=== PATIENT | female | born 1965 | race Caucasian/White ===

== ENCOUNTER → 2018-02-20 20:04 | Outpatient (CLI) | payer MEDICAID, SELFPAY | PROVIDERS: PCP Family Medicine; Visit Provider Nurse Practitioner Family | DX: G47.33 Obstructive sleep apnea (adult) (pediatric) (principal) | CPT/HCPCS: 95811 ==

== ENCOUNTER 2021-09-15 09:29 | Emergency (ER) | payer BC, SELFPAY ==
--- NOTE | 2021-09-15 10:38 | HMH.EDUTC ---
[facility] [place] Disposition Clinical Impression: Viral syndrome, Bronchitis Sinusitis Qualifiers: Sinusitis location: unspecified location Chronicity: acute Recurrence: non-recurrent Qualified Code(s): J01.90 - Acute sinusitis, unspecified Disposition: Home, Self-Care Condition on Discharge: Good Instructions: DI for Sinusitis, DI for Acute Bronchitis Additional Instructions: Drink plenty of fluids. Take tylenol or ibuprofen for pain or fever. Take the medications as directed. Follow up with your regular doctor. GO TO THE ER FOR ANY WORSENING SYMPTOMS Don't start the oral steroids until tomorrow, since you had the shot here today. Prescriptions: Albuterol Sulfate [Albuterol Sulfate Hfa] 2 puffs IH Q6HP PRN 30 Days #1 each PRN Reason: Shortness Of Breath Transmission Status: Received by [facility] Benzonatate [Benzonatate 100mg cap] 100 mg PO TIDP PRN #30 cap PRN Reason: Cough Transmission Status: Received by [facility] methylPREDNISolone [Medrol] 4 mg PO DIRECTED 6 Days #21 packet Transmission Status: Received by [facility] Azithromycin [Z-Nathaniel 250mg Tab*] 250 mg PO UD DOSE PK #6 tab Transmission Status: Received by [facility] Referrals: Provider,Referral, MD [Primary Care Provider] - Forms: Work/School Release Time of Disposition: 11:30 Medical Decision Making - Medical Records Medical records reviewed: No: I reviewed the patient's medical records. - Johny Inquiry Pt receiving controlled substance: No Vital Signs: 09/15/21 10:40 09/15/21 11:46 Temperature 98.2 F 98.2 F Temperature Source Oral Pulse Rate 93 H Pulse Rate [Right Brachial] 93 H Respiratory Rate 18 18 Blood Pressure 150/87 H Blood Pressure [Right Arm] 150/87 H Blood Pressure Mean [Right Arm] 108 Blood Pressure Source [Right Arm] Automatic Cuff Blood Pressure Position [Right Arm] Sitting 02 Sat by Pulse Oximetry 98 Oxygen Delivery Method Room Air - Lab Data Lab results reviewed: Yes: I reviewed the patient's lab results. Lab Results 09/15/21 10:43: Influenza Type A Ag Negative, Influenza Type B Ag Negative Orders (Tests/Meds): ED MEDICATIONS Discontinued Medications Generic Name Dose Route Start Last Admin Trade Name Freq PRN Reason Stop Dose Admin Ceftriaxone Sodium 1 gm 09/15/21 11:23 09/15/21 11:40 Ceftriaxone 1gm Vial IM 09/15/21 11:24 1 gm ONCE ONE Administration Lidocaine HCl 0 ml 09/15/21 11:23 09/15/21 11:40 Lidocaine 1% 5ml Pf Vial IM 09/15/21 11:24 2 ml ONCE ONE Administration Methylprednisolone Sodium Succinate 125 mg 09/15/21 11:23 09/15/21 11:40 Methylprednisolone Sod Succ 125mg Vial IM 09/15/21 11:24 125 mg ONCE ONE Administration [facility] [place] HPI - General Stated complaint: sore throat, bodyaches, MEDRANO Time Seen by Provider: 09/15/21 10:38 - History of Present Illness Provider Complaint: She c/o sore throat and body aches for the past 2 days. - Related Data Home Medications Medication Instructions Recorded Confirmed buspirone 10 mg tablet 10 mg PO 30 Days tab 02/03/18 03/04/18 levothyroxine 88 mcg tablet 88 mcg PO DAILY 30 Days #30 tab 02/03/18 03/04/18 losartan 100 1 tab PO DAILY 30 Days #30 tab 02/03/18 03/04/18 mg-hydrochlorothiazide 25 mg tablet metoprolol succinate 50 mg 50 mg PO DAILY 30 Days #30 tab 02/03/18 03/04/18 tablet,extended release 24 hr Previous Rx's Medication Instructions Recorded Albuterol Sulfate [Albuterol 2 puffs IH Q6HP PRN 30 Days #1 each 09/15/21 Sulfate Hfa] Azithromycin [Z-Nathaniel 250mg Tab*] 250 mg PO UD DOSE PK #6 tab 09/15/21 Benzonatate [Benzonatate 100mg 100 mg PO TIDP PRN #30 cap 09/15/21 cap] methylPREDNISolone [Medrol] 4 mg PO DIRECTED 6 Days #21 09/15/21 packet Allergies Allergy/AdvReac Type Severity Reaction Status Date / Time No Known Allergies Allergy Unverified 03/04/18 14:17 [facility] History - Hepatitis
[2021-09-15 10:40] VITALS: BP 150/87; PULSE 93; RESP 18; TEMP 36.8; O2SAT 98; BMI 31.7
[2021-09-15 10:43] LABS: UTC Influenza A Antigen Negative (Negative); UTC Influenza B Antigen Negative (Negative)
[2021-09-15 11:46] VITALS: BP 150/87; PULSE 93; RESP 18; TEMP 36.8; O2SAT 98
== END 2021-09-15 11:55 | disposition home or self-care (01) ==
LOC: UTC 09:32
PROVIDERS: Emergency Provider Nurse Practitioner Family
DX: J01.90 Acute sinusitis, unspecified (principal); B34.9 Viral infection, unspecified; M79.10 Myalgia, unspecified site; R51.9 Headache, unspecified; I10 Essential (primary) hypertension; E03.9 Hypothyroidism, unspecified; F41.9 Anxiety disorder, unspecified; F17.210 Nicotine dependence, cigarettes, uncomplicated; Z79.51 Long term (current) use of inhaled steroids; Z79.52 Long term (current) use of systemic steroids; Z82.49 Family history of ischemic heart disease and other diseases of the circulatory system; Z83.3 Family history of diabetes mellitus
CPT/HCPCS: 87804; 96372; 99213; G0463; J0696

== ENCOUNTER 2022-10-01 16:18 | Emergency (ER) | payer BC, SELFPAY ==
--- NOTE | 2022-10-01 16:27 | EXP.UTC ---
Discharge Plan Disposition Patient Disposition: Home, Self-Care Condition: Good Prescriptions Prescriptions: No Action levothyroxine 88 mcg tablet 88 mcg PO DAILY 30 Days Qty: 30 metoprolol succinate 50 mg tablet extended release 24 hr 50 mg PO DAILY 30 Days Qty: 30 losartan-hydrochlorothiazide 100-25 mg tablet 1 tab PO DAILY 30 Days Qty: 30 metformin 500 mg tablet extended release 24 hr 500 mg PO DAILY albuterol sulfate 8.5 GM HFA aerosol inhaler 2 puffs IH Q6HP PRN (Reason: Shortness Of Breath) 30 Days Qty: 1 5RF Referrals Follow up/Referrals: Rolo Miller [Primary Care Provider] - See instructions Nusrat Kilpatrick DPM [Staff Physician] - See instructions Activity Restrictions/Add. Instructions Additional Instructions/Restrictions: Rest the extremity, Elevate the extremity as tolerated while you are resting. Take ibuprofen for pain. Follow up with Dr. Kilpatrick (podiatry). I put in a referral but you need to call her office and schedule an appointment. Follow up with your regular doctor. GO TO THE ER FOR ANY WORSENING SYMPTOMS Clinical Impressions Clinical Impression: Foot pain, right, Calcaneal spur, right Instructions Patient Instructions: DI for Foot Pain Discharge ED Provider: Sherif Napoles [facility] General Stated complaint: RT foot inj Time Seen by Provider: 10/01/22 16:26 History of Present Illness Provider Complaint: She states that on 09/22 she twisted her right foot and ankle. Related Data Home Medications Medication Instructions Recorded Confirmed levothyroxine 88 mcg tablet 88 mcg PO DAILY Supplement 30 days 02/03/18 10/01/22 #30 tabs losartan 100 1 tab PO DAILY High blood pressure 02/03/18 10/01/22 mg-hydrochlorothiazide 25 mg tablet 30 days #30 tabs metoprolol succinate 50 mg 50 mg PO DAILY High blood pressure 02/03/18 10/01/22 tablet,extended release 24 hr 30 days #30 tabs metformin 500 mg tablet,extended 500 mg PO DAILY Diabetes 10/01/22 10/01/22 release 24 hr Previous Rx's Medication Instructions Recorded albuterol sulfate 90 mcg/actuation 2 puffs inhalation Q6HP PRN 09/15/21 aerosol inhaler Shortness Of Breath 30 days #1 ea Allergies Allergy/AdvReac Type Severity Reaction Status Date / Time No Known Allergies Allergy Verified 10/01/22 16:34 [facility] Disclaimer: The information contained in this section may have been updated after the patient was seen, as this information can be updated by other users. Medical History Diabetes mellitus, type 2 Hypertension Hypothyroid Surgical History History of cholecystectomy History of hysterectomy History of tonsillectomy Family History Other No significant family history Social History Smoking Status: Current every day smoker tobacco type: cigarettes packs per day: 1 alcohol intake: never substance use type: denies use current occupational status: employed Travel in the last 8 weeks: None household members: none housing: house ROS Obtained: Yes All systems reviewed & no additional complaints except as documented Constitutional Constitutional: Denies chills and Denies fever(s) Eyes Eyes: Denies eye discharge ENT Ears, Nose, Mouth, and Throat: Denies dizziness, Denies otalgia and Denies sore throat Cardiovascular Cardiovascular: Denies chest pain Respiratory Respiratory: Denies shortness of breath, Denies chest congestion, Denies cough, Denies stridor and Denies wheezing Gastrointestinal Gastrointestingal: Denies nausea or vomiting Musculoskeletal Musculoskeletal: Reports as per HPI Integumentary/Breasts Skin/Breast: Denies rash Neurologic Neurologic: Denies dizziness and Denies paresthesias Allergic/Immunologic Allergic/Immunol
--- NOTE | 2022-10-01 16:29 | XR_ITS ---
PROCEDURE INFORMATION: Exam: XR Right Foot Exam date and time: 10/01/2022 4:50 PM Age: 57 years old Clinical indication: Pain; Foot; Right TECHNIQUE: Imaging protocol: Radiologic exam of the right foot. Views: 3 or more views. COMPARISON: No relevant prior studies available. FINDINGS: Bones/joints: No acute fracture or dislocation. Bones appear mildly demineralized. Prominent plantar calcaneal spur, milder Achilles calcaneal spur. There are no lytic skeletal lesions seen. No significant arthritic deformities. Soft tissues: Minimal soft tissue swelling. No radiopaque foreign bodies seen. No soft tissue emphysema. IMPRESSION: 1. No acute fracture or dislocation. 2. Plantar and Achilles calcaneal spurs, correlate for history of plantar fasciitis or Achilles tendinopathy.
[2022-10-01 16:36] VITALS: BP 145/85; PULSE 83; RESP 16; TEMP 36.5; O2SAT 97; BMI 32.8
[2022-10-01 17:42] VITALS: BP 145/85; PULSE 83; RESP 16; TEMP 36.5; O2SAT 83
== END 2022-10-01 17:43 | disposition home or self-care (01) ==
PROVIDERS: Emergency Provider Nurse Practitioner Family; PCP Family Medicine
DX: M79.671 Pain in right foot (principal); M77.31 Calcaneal spur, right foot; F17.210 Nicotine dependence, cigarettes, uncomplicated; E11.9 Type 2 diabetes mellitus without complications; I10 Essential (primary) hypertension; E03.9 Hypothyroidism, unspecified; Z79.84 Long term (current) use of oral hypoglycemic drugs; X50.1XXA Overexertion from prolonged static or awkward postures, initial encounter
CPT/HCPCS: 73630; 99212; 99214; G0463

== ENCOUNTER → 2022-11-07 11:28 | Outpatient (CLI) | payer BC, SELFPAY ==
[2022-11-07 18:23] LABS: Adenovirus,PCR Not Detected (NotDetected); Bordetella Pertussis Not Detected (NotDetected); Chlamydophila Pneumoniae, PCR Not Detected (NotDetected); Coronavirus 19, PCR Not Detected (NotDetected); Coronavirus 229E Not Detected (NotDetected); Coronavirus NL63 Not Detected (NotDetected); Coronavirus OC43 Not Detected (NotDetected); Coronovirus HKU1,PCR Not Detected (NotDetected); Human Metapneumovirus Not Detected (NotDetected); Influenza A, PCR Not Detected (NotDetected); Influenza AH1, 2009 Not Detected (NotDetected); Influenza AH1, PCR Not Detected (NotDetected); Influenza AH3,PCR Not Detected (NotDetected); Influenza B, PCR Not Detected (NotDetected); Mycoplasma Pneumoniae, PCR Not Detected (NotDetected); Parainfluenza 1, PCR Not Detected (NotDetected); Parainfluenza 2, PCR Not Detected (NotDetected); Parainfluenza 3, PCR Not Detected (NotDetected); Parainfluenza 4, PCR Not Detected (NotDetected); Respiratory Syncytial Virus Not Detected (NotDetected)
[2022-11-07 20:41] LABS: Rhinovirus/Enterovirus Detected (NotDetected)
== END ==
PROVIDERS: PCP Nurse Practitioner Family; Visit Provider Nurse Practitioner Family
DX: R05.9 Cough, unspecified (principal); B34.1 Enterovirus infection, unspecified
CPT/HCPCS: 87581; 87632; 87798

== ENCOUNTER 2024-01-08 19:12 | Outpatient (CLI) | payer BC, SELFPAY ==
[2024-01-08 18:29] LABS: Adenovirus,PCR Not Detected (NotDetected); Bordetella Pertussis Not Detected (NotDetected); Chlamydophila Pneumoniae, PCR Not Detected (NotDetected); Coronavirus 19, PCR Not Detected (NotDetected); Coronavirus 229E Not Detected (NotDetected); Coronavirus NL63 Not Detected (NotDetected); Coronavirus OC43 Not Detected (NotDetected); Coronovirus HKU1,PCR Not Detected (NotDetected); Human Metapneumovirus Not Detected (NotDetected); Influenza A, PCR Not Detected (NotDetected); Influenza AH1, 2009 Not Detected (NotDetected); Influenza AH1, PCR Not Detected (NotDetected); Influenza AH3,PCR Not Detected (NotDetected); Influenza B, PCR Not Detected (NotDetected); Mycoplasma Pneumoniae, PCR Not Detected (NotDetected); Parainfluenza 1, PCR Not Detected (NotDetected); Parainfluenza 2, PCR Not Detected (NotDetected); Parainfluenza 3, PCR Not Detected (NotDetected); Parainfluenza 4, PCR Not Detected (NotDetected); Respiratory Syncytial Virus Not Detected (NotDetected)
[2024-01-13 18:16] LABS: Rhinovirus/Enterovirus Detected (NotDetected)
== END 2024-01-08 23:59 | disposition home or self-care (01) ==
LOC: LAB.DROPOF 19:12
PROVIDERS: PCP Nurse Practitioner Family; Visit Provider Nurse Practitioner Family
DX: R09.81 Nasal congestion (principal); J02.9 Acute pharyngitis, unspecified; Z72.0 Tobacco use
CPT/HCPCS: 87070; 87265; 87486; 87581; 87632; 87635

== ENCOUNTER 2024-01-21 16:00 | Outpatient (CLI) | payer BC, SELFPAY ==
--- NOTE | 2024-01-21 16:07 | XR_ITS ---
PROCEDURE INFORMATION: Exam: XR Chest Exam date and time: 01/21/2024 4:11 PM Age: 58 years old Clinical indication: Dyspnea TECHNIQUE: Imaging protocol: Radiologic exam of the chest. Views: 2 views. COMPARISON: No relevant prior studies available. FINDINGS: Lungs: Calcified granuloma in the left mid to upper lung reese. Pleural spaces: No large effusion or pneumothorax. Heart/Mediastinum: No evidence of mediastinal widening or cardiac silhouette enlargement; the mediastinum and heart appear within normal limits for contour and size. Diaphragm: There is elevation of the right hemidiaphragm. Bones/joints: No evidence of acute osseous abnormalities within the visualized portions of the thoracic spine and ribs. Osseous structures appear appropriate for patient age. Intraperitoneal space: There are right upper quadrant surgical clips suggesting prior cholecystectomy. IMPRESSION: No dense parenchymal consolidation, pleural effusion, or pneumothorax.
== END 2024-01-21 23:59 | disposition home or self-care (01) ==
LOC: RAD 16:03
PROVIDERS: Visit Provider Nurse Practitioner Family
DX: R06.00 Dyspnea, unspecified (principal)
CPT/HCPCS: 71046

== ENCOUNTER 2024-06-28 10:32 | Emergency (ER) | payer BC, SELFPAY ==
[2024-06-28 10:33] VITALS: BP 152/85; PULSE 99; RESP 24; TEMP 37.2; O2SAT 97; BMI 31.1
--- NOTE | 2024-06-28 10:35 | PC.NURSE ---
DR ADAMS AT BEDSIDE
--- NOTE | 2024-06-28 10:40 | XR_ITS ---
PROCEDURE INFORMATION: Exam: XR Chest Exam date and time: 06/28/2024 10:37 AM Age: 58 years old Clinical indication: Other: Cough, biphasic wheeze TECHNIQUE: Imaging protocol: Radiologic exam of the chest. Views: 2 views. COMPARISON: CR XR CHEST 2V 01/21/2024 4:11 PM FINDINGS: Lungs: Benign granulomatous disease of the lung is unchanged. Pleural spaces: Unremarkable. No pleural effusion. No pneumothorax. Heart/Mediastinum: Unremarkable. No cardiomegaly. Bones/joints: Unremarkable. Organs: Prior cholecystectomy noted. IMPRESSION: No acute process identified.
--- NOTE | 2024-06-28 10:42 | HMH.EDCP ---
Discharge Plan Disposition Patient Disposition: Home, Self-Care Prescriptions Prescriptions: New [id number] [Bromfed DM] 2-30-10 mg/5 mL syrup 5 ml PO Q6H PRN (Reason: cold symptoms) Qty: 118 0RF Rx Instructions: Do not combine with promethazine No Action omeprazole 20 mg capsule,delayed release(DR/EC) 20 mg PO DAILY promethazine-DM 6.25-15 mg/5 mL syrup 5 ml PO Q4-6H PRN (Reason: cough) Qty: 118 0RF levothyroxine 88 mcg tablet 88 mcg PO DAILY 30 Days Qty: 30 metoprolol succinate 50 mg tablet extended release 24 hr 50 mg PO DAILY 30 Days Qty: 30 telmisartan-hydrochlorothiazid 80-12.5 mg tablet 1 tab PO DAILY rosuvastatin 20 mg tablet 20 mg PO DAILY metformin 500 mg tablet extended release 24 hr 500 mg PO DAILY Referrals Follow up/Referrals: Linda Oseguera APRN [Primary Care Provider] - See instructions Activity Restrictions/Add. Instructions Additional Instructions/Restrictions: At this time it was felt you are safe to be discharged home. If new or worsening symptoms please do not hesitate to return the emergency department. Please follow-up with your family doctor within 5 days to recheck your sugar and make sure your flu is headed in the right direction. Please take your cough medicine as prescribed. Clinical Impressions Clinical Impression: Influenza A, Hyperglycemia Print Language Print Language: Yi Discharge ED Provider: Boone Gresham HPI General Chief Complaint: Upper Respiratory Infection Stated Complaint: SOA, cough, headache, diarrhea Time Seen by Provider: 06/28/24 10:37 History of Present Illness HPI narrative: Patient is a 58-year-old female, smoker, does not carry diagnosis of COPD presents emergency department for evaluation of cough and shortness of breath. Onset was acute, over the last 7 days, productive cough. No chest pain reported. Does not take diuretics. Due to persistent symptoms she presents here for continued evaluation. No other acute complaints at this time. Please note that above description of symptoms, in this electronic medical record under categorization of recalled from ER triage doctor by RN are reflective of an initial nursing assessment, however, is not reflective of my full history and physical exam that was personally taken and clarified. Consequentially, this preceding description of symptoms, which may include the patient's categorized chief complaint in the EMR, do not reflect my personal clinical impression, and the ultimate description of history of present illness and patient stated complaints should be deferred to this section of the note. Unless stated otherwise or congruent with this section of the note, additional signs, symptoms, or incongruence should be interpreted as inaccurate with my clinical impression. Related Data Home Medications ?Medication ?Instructions ?Recorded ?Confirmed levothyroxine 88 mcg tablet 88 mcg PO DAILY Supplement 30 days 02/03/18 01/08/24 #30 tabs metoprolol succinate 50 mg 50 mg PO DAILY High blood pressure 02/03/18 01/08/24 tablet,extended release 24 hr 30 days #30 tabs metformin 500 mg tablet,extended 500 mg PO DAILY Diabetes 10/01/22 01/08/24 release 24 hr rosuvastatin 20 mg tablet 20 mg PO DAILY 11/07/22 01/08/24 telmisartan 80 1 tab PO DAILY 11/07/22 01/08/24 mg-hydrochlorothiazide 12.5 mg tablet omeprazole 20 mg capsule,delayed 20 mg PO DAILY 01/08/24 01/08/24 release Previous Rx's ?Medication ?Instructions ?Recorded promethazine-DM 6.25 mg-15 mg/5 mL 5 ml PO Q4-6H PRN cough #118 mL 01/08/24 oral syrup [id number]-[id number] 5 ml PO Q6H PRN cold symptoms #118 06/28/24 2 mg-30 mg-10 mg/5 mL oral syrup mL (Bromfed DM) Allergies Allergy/AdvReac Type Severity Reaction Status Date / Time No Known Allergies Allergy Verified 01/08/24 15:23 [facility] Disclaimer: The information contained in this section may have been updated after the patient was seen, as this information can be updated by other users. Medical History (Updated 06/28/24 @ 11:54 by Boone Gresham MD) Calcaneal spur, right Foot pain, right Sinusitis Bronchitis Plantar fasciitis of right foot Acute bacterial bronchitis Hypothyroid Diabetes mellitus, type 2 Hypertension Surgical History History of cholecystectomy History of hysterectomy History of tonsillectomy Family History Other No significant family history Social History Smoking Status: Current every day smoker tobacco type: cigarettes packs per day: 1 alcohol intake: never substance use type: denies use current occupational status: employed Travel in the last 8 weeks: None household members: none housing: house Have you lived/traveled outside [place] in past 30 days?: No Contact w/someone who lives/traveled outside [place] past 30 days?: No Exposure to someone with infectious disease in past 14 days?: No Do you have a fever (greater than 100.4 F or 38 C)?: No Have you tested positive for COVID-19: No Exposed to someone with COVID-19 in past 14 days?: No Do you have a sore throat?: No Do you have a cough?: Yes Do you have any weakness?: Yes Do you have any diarrhea?: Yes Are you experiencing any unusual bleeding?: No Do you have any muscle aches/pain?: Yes Do you have any abdominal pain?: No Are you experiencing loss of taste or smell?: No Other Medical History Have you received the Pneumonia Vaccine: No ROS Obtained: Yes Systems reviewed as appropriate & no additional complaints except as documented Physical Exam General General appearance: alert and in no apparent distress Head Head exam: atraumatic and normocephalic Eye Eye exam: Present PERRL ENT ENT exam: Present mucous membranes moist and other (Mildly erythematous posterior oropharynx without purulence, no enlarged tonsils uvula midline) Neck Neck exam: Present normal inspection Chest Chest inspection: Present normal inspection and symmetric chest wall rise Respiratory Respiratory exam: Present wheezes (Biphasic wheezing all lung reese not in overt respiratory distress); Absent normal lung sounds bilaterally or respiratory distress Cardiovascular Cardiovascular exam: Present regular rate and normal rhythm Abdominal Exam Abdominal exam: Present soft; Absent tenderness Extremities Exam Extremities exam: Present normal inspection Neurological Exam Neurological exam: Present alert Psychiatric Psychiatric exam: Present normal affect Skin Skin exam: Present warm and dry HEART Score HEART Score HEART Score assessment performed?: No Critical Care Critical Care Time Critical Care Time: No Medical Decision Making Johny Inquiry Pt receiving controlled substance: No Vital Signs Vital Signs: 06/28/24 10:33 06/28/24 11:28 Temperature 99.0 F Temperature Source Oral Pulse Rate 94 H Pulse Rate [Left Radial] 99 H Respiratory Rate 24 Blood Pressure 137/74 Blood Pressure [Right Arm] 152/85 H Blood Pressure Mean [Right Arm] 107 02 Sat by Pulse Oximetry 97 95 Oxygen Delivery Method Room Air Room Air Lab Data Labs: Lab Results 06/28/24 10:50: WBC 9.3, RBC 4.58, Hgb 12.7, Hct 37.2, MCV 81.2, MCH 27.7, MCHC 34.1, RDW 11.9, Plt Count 345, MPV 9.0, Neut % (Auto) 69.1, Lymph % (Auto) 21.9, [place] % (Auto) 5.8, Eos % (Auto) 2.4, Baso % (Auto) 0.4, Neut # (Auto) 6.4, Lymph # (Auto) 2.0, [place] # (Auto) 0.5, Eos # (Auto) 0.2, Baso # (Auto) 0.0, Sodium 140, Potassium 3.5, Chloride 102, Carbon Dioxide 30, Anion Gap 11.5, BUN 11, Creatinine 0.70, Estimated Creat Clear 108, Estimated GFR 85, Est GFR ( Amer) 103, Glucose 249 H, Calcium 9.1, Total Bilirubin 0.7, AST 67 H, ALT 56, Alkaline Phosphatase 108, Total Protein 7.6, Albumin 4.2, Globulin 3.4 H, Albumin/Globulin Ratio 1.2, SARS-CoV-2 (PCR) Not detected, Influenza A Untype (PCR) Detected A, Influenza Type B (PCR) Not detected 06/28/24 10:50 06/28/24 10:50 Response Orders (Tests/Meds): ED MEDICATIONS Discontinued Medications Generic Name Dose Route Start Last Admin Trade Name Freq PRN Reason Stop Dose Admin Albuterol/Ipratropium 9 ml 06/28/24 10:40 06/28/24 10:56 Ipratropium/Albuterol 3 Ml Neb IH 06/28/24 10:41 9 ml ONCE ONE Administration Magnesium Sulfate 2 gm in 50 mls @ 50 mls/hr 06/28/24 10:40 06/28/24 10:55 Magnesium Sulfate 2gm/50ml Premix IV 06/28/24 11:39 50 mls/hr ONCE ONE Administration Methylprednisolone Sodium Succinate 125 mg 06/28/24 10:40 06/28/24 10:55 Methylprednisolone Sod Succ 125mg Vial IV 06/28/24 10:41 125 mg ONCE ONE Administration ORDERS Category Date Time Status CXR 2 view (NOT portable) [XR chest 2V] Stat Exams 06/28/24 10:40 Completed CBC w/Auto Diff [Complete Blood Count Auto Diff] Stat Lab 06/28/24 10:50 Completed CMP [Comprehensive Metabolic Panel] Stat Lab 06/28/24 10:50 Completed Rapid PCR Covid and Flu A/B Stat Lab 06/28/24 10:50 Completed MDM Narrative Medical Decision Narrative: In summary patient is 58-year-old female past medical history described above who presents emergency department for evaluation of shortness of breath and cough. Patient is hemodynamically stable nontoxic-appearing upon arrival, afebrile. She does have biphasic wheezing all lung reese. I suspect she has viral induced reactive airway disease or possibly a component of undiagnosed COPD. Differential also includes pneumonia, among others. Workup we conducted with hematologic labs, two-view chest x-ray, viral swab. Initial inventions include DuoNebs x 3, methylprednisolone, IV steroids. Workup for ACS was considered however she has no chest pain and symptoms highly consistent with respiratory infection will be deferred at this time. Initial workup reviewed by me, no significant leukocytosis, no [place] or critical electrolyte abnormality. Patient does have elevated sugar without elevated anion gap. She is influenza A positive. Chest x-ray informally interpreted by me, no acute lobar opacities or large pneumothorax. Upon repeat evaluation patient continued to be well-appearing saturating well on room air without respiratory distress and is appropriate for outpatient management at this time will be discharged with a course of Bromfed and was given return precautions will follow-up with family doctor.
[2024-06-28] MEDS: MAGNESIUM SULFATE IN WATER 2 GM/50 ML PIGGYBACK IV (10:55)
[2024-06-28] MEDS: METHYLPREDNISOLONE SOD SUCC 125MG VIAL 125 MG IV (10:55)
[2024-06-28] MEDS: IPRATROPIUM/ALBUTEROL 3 ML NEB 9 ML IH (10:56)
[2024-06-28 11:03] LABS: Coronavirus 19, PCR Not Detected (NotDetected); Influenza B, PCR Not Detected (NotDetected)
[2024-06-28 11:04] LABS: Basophils % 0.4 % (0.1-2.0); Eosinophils # 0.2 K/mm3 (0.0-0.4); Eosinophils % 2.4 % (0.1-12.0); Hematocrit 37.2 % (37.0-47.0); Hemoglobin 12.7 g/dL (12.2-16.2); Lymphocytes % 21.9 % (10-50); Mean Corpuscular HGB Conc 34.1 g/dL (31.8-35.4); Mean Corpuscular Hemoglobin 27.7 pg (27.0-31.2); Mean Corpuscular Volume 81.2 fl (81-99); Monocytes # 0.5 K/mm3 (0.1-1.0); Monocytes % 5.8 % (1.7-9.3); Neutrophils # 6.4 K/mm3 (1.8-7.8); Neutrophils % 69.1 % (37.0-80.0); Platelet Count 345 K/mm3 (142-424); Red Blood Count 4.58 M/mm3 (4.20-5.40); Red Cell Distribution Width 11.9 % (11.5-17.5); White Blood Count 9.3 K/mm3 (4.8-10.8)
[2024-06-28 11:14] LABS: Albumin Level 4.2 g/dl (3.5-5.0); Chloride 102 mmol/L (98-107); Sodium 140 mmol/L (136-145)
[2024-06-28 11:15] LABS: Potassium 3.5 mmoL/L (3.5-5.1)
[2024-06-28 11:17] LABS: Alanine Aminotransferase 56 U/L (12-78); Albumin/Globulin Ratio 1.2 (1.1-1.8); Alkaline Phosphatase 108 U/L (38-126); Anion Gap 11.5 mEq/L (5-15); Aspartate Amino Transferase 67 U/L (14-36); Bilirubin,Total 0.7 mg/dl (0.2-1.3); Blood Urea Nitrogen 11 mg/dl (7-17); Calcium 9.1 mg/dl (8.4-10.2); Carbon Dioxide 30 mmol/L (22.0-30.0); Creatinine Clearance Estimated 108 mL/min (50-200); Estimated Glomerular Filt Rate 85 ml/min (>60); GFR (African American) 103 ML/MIN (>60); Globulin 3.4 g/dL (1.3-3.2); Glucose 249 mg/dl (74-100); Total Protein,Serum 7.6 g/dl (6.3-8.2)
[2024-06-28 11:28] VITALS: BP 137/74; PULSE 94; O2SAT 95
[2024-06-28 11:28] LABS: Influenza A, PCR Detected (NotDetected)
--- NOTE | 2024-06-28 11:30 | PC.NURSE ---
ROUNDED ON THE PT. THE PT VOICES THAT SHE DOES NOT NEED ANYTHING AT THIS TIME. CALL LIGHT IS WITHIN REACH OF THE PT.
--- NOTE | 2024-06-28 11:46 | PC.NURSE ---
Patient assisted to the restroom
[2024-06-28 12:02] VITALS: BP 115/64; PULSE 100; RESP 24; TEMP 37.1; O2SAT 95
== END 2024-06-28 12:03 | disposition home or self-care (01) ==
PROVIDERS: Emergency Provider Emergency Medicine; PCP Nurse Practitioner Family
DX: J10.1 Influenza due to other identified influenza virus with other respiratory manifestations (principal); R73.9 Hyperglycemia, unspecified; R06.02 Shortness of breath; R05.9 Cough, unspecified; F17.210 Nicotine dependence, cigarettes, uncomplicated; R51.9 Headache, unspecified; R19.7 Diarrhea, unspecified
CPT/HCPCS: 71046; 80053; 85025; 87636; 96365; 96374; 99284; J2919; J3475; J7620

== ENCOUNTER 2024-10-22 11:16 | Emergency (ER) | payer BC, SELFPAY ==
[2024-10-22 11:20] VITALS: BP 125/77; PULSE 86; RESP 17; TEMP 36.8; O2SAT 98; BMI 31.5
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
[2024-10-22 11:47] VITALS: BP 118/72; PULSE 81; RESP 18; TEMP 36.6; O2SAT 98
--- OUTSIDE RECORDS SUMMARY | 2024-10-22 11:47 | XMS_ITS | Clinical Summary ---
Author Organization [facility] Address [address] 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 metoprolol succinate XL (Toprol-XL) 50 MG 24 hr tabletIndications :Essential hypertension Take 1 tablet (50 mg total) by mouth 1 (one) time each day. 90 tablet 3 01/11/2021 Active telmisartan-hydro CHLOROthiazide (MIcarDIS HCT) 80-12.5 MG tabletIndications :Essential hypertension Take 1 tablet by mouth 1 (one) time each day. 90 tablet 3 01/11/2021 Active levothyroxine (Synthroid, Levoxyl) 88 MCG tabletIndications :Hypothyroidism (acquired) Take 1 tablet (88 mcg total) by mouth 1 (one) time each day. 90 tablet 3 01/17/2021 Active metFORMIN XR (Glucophage-XR) 500 MG 24 hr tabletIndications :Prediabetes Take 1 tablet (500 mg total) by mouth 1 (one) time each day with dinner. Do not crush, chew, or split. 90 tablet 3 01/18/2021 Active Active Problems Problem Noted Date Diagnosed Date GERD (gastroesophageal reflux disease) Overview (01/11/2021): stable Last Assessment & Plan: Well controlled stable Last Assessment & Plan: Well controlled HTN (hypertension) 01/11/2021 Overview (01/11/2021): controlled Last Assessment & Plan: Controlled. controlled Last Assessment & Plan: Controlled. Hyperlipidemia associated with type 2 diabetes kelsie jones 12/01/2019 Overview (01/11/2021): Last Assessment & Plan: Est 10 year risk at 11% (6% with high dose treatment) Last Assessment & Plan: Est 10 year risk at 11% (6% with high dose treatment) Hypothyroidism (acquired) 04/11/2015 Overview (01/11/2021): Last Assessment & Plan: Well controlled Last Assessment & Plan: Well controlled Obesity (BMI 30.0-34.9) 12/07/2013 Overview (01/11/2021): Last Assessment & Plan: Doing well with weight loss Continue diet and exercise. Last Assessment & Plan: Doing well with weight loss Continue diet and exercise. PABLO on CPAP 10/05/2013 Overview (01/11/2021): Will be seeing Dr iGllis soon. Last Assessment & Plan: Doing well Will be seeing Dr Gillis soon. Last Assessment & Plan: Doing well Prediabetes 10/05/2013 Overview (01/11/2021): Last Assessment & Plan: Now in weight watchers Has lost 8 # in the past 2 weeks Recheck A1C in 3 months. Last Assessment & Plan: Now in weight watchers Has lost 8 # in the past 2 weeks Recheck A1C in 3 months. Vitamin D insufficiency 10/05/2013 Overview (01/11/2021): Last Assessment & Plan: No problems clinically. In low nml range Recommend Vit D OTC 5000 units daily Plan recheck in about 3 months Last Assessment & Plan: No problems clinically. In low nml range Recommend Vit D OTC 5000 units daily Plan recheck in about 3 months Gout 03/30/2013 Allergic rhinitis 12/01/2011 Overview (01/11/2021): Last Assessment & Plan: No problems. Last Assessment & Plan: No problems. Immunizations Immunization Administration Dates Next Due Hep B, adult 07/16/2018,03/24/2018,02/18/2018 Influenza, Unspecified 07/15/2020,02/18/2018 Influenza, injectable, quadr ivalent, preservative free 04/05/2021 Moderna COVID-19 Vaccine (Re d Cap) 12+ years 05/26/2020,04/27/2020 Tdap 03/25/2007 Social History Tobacco Use Types Packs/Day Years Used Date Smoking Tobacco: Every Day Cigarettes 0.3 7 Smokeless Tobacco: Never Alcohol Use Standard Drinks/Week Comments Yes 0 (1 standard drink = 0.6 oz pur e alcohol) social drink PHQ-2 Answer Date Recorded Patient Health Questionnaire-2 Score 0 01/11/2021 Comments No Sex and Gender Information Value Date Recorded Sex Assigned at Female 01/12/2021 9:11 AM EDT Legal Sex Female 8:03 PM EDT Gender Identity Female 01/12/2021 9:11 AM EDT Sexual Orientation Straight 01/12/2021 9: 11 AM EDT Last Filed Vital Signs Vital Sign Reading Time Taken Comments Blood Pressure 110/76 06/07/2021 9:39 AM EST Pulse 77 06/07/2021 9:39 AM EST Temperature 36.7 C (98.1 F) 06/07/2021 9:39 AM EST Respiratory Rate 20 05/09/2021 8:20 AM EST Oxygen Saturation 97% 06/07/2021 9:39 AM EST Inhaled Oxygen Concentration - - Weight 80.3 kg (177 lb) 06/07/2021 9:39 AM EST Height 160 cm (5' 3 ) 06/07/2021 9:39 AM EST Body Mass Index 31.35 06/07/2021 9:39 AM EST Plan of Treatment Health Maintenance Due Date Last Done Comments [facility]-Depression Screening 1965 [facility]-/Child/Adol SDOH Screenings 1965 [facility]- SDOH Screenings 07/13/1981 [facility]-Adult SDOH Screenings 07/13/1981 [facility]-Pap Smear 07/13/1984 [facility]-Cervical Cancer Screening 07/13/1993 [facility]-HPV/Cotest 07/13/1993 CT Colonography 07/13/2008 Colonoscopy 07/13/2008 FIT-DNA 07/13/2008 FIT 07/13/2008 FOBT 07/13/2008 Sigmoidoscopy 07/13/2008 [facility]-Colorectal Cancer Screening 07/13/2008 [facility]-Pneumococcal Vaccine: 50+ Years (1 of 1 - PCV) 07/13/2013 [facility]-Zoster Vaccines (1 of 2) 07/13/2013 [facility]-DTaP,Tdap,and Td Vaccines (2 - Td or Tdap) 03/25/2017 03/25/2007 [id number] Vaccine ( season) 2024 10/21/2021, 03/24/2021, 05/26/2020, Additional history exists [facility]-Influenza Vaccine (Season Ended) 2025 04/05/2021, 07/15/2020, 03/06/2018, Additional history exists [facility]-RSV Vaccine: 60+ Years or (1 - 1-dose 75+ series) 07/13/2038 [facility]-Diabetes: Hemoglobin A1C Discontinued 01/12/2021 [facility]-Breast Cancer Screening Discontinued 07/2021, 02/06/2021, 02/06/2021, Additional history exists HPV Vaccines Aged Out No longer eligi ble based on patient's age to complete this topic [facility]-HIB Vaccines Aged Out No longer e ligible based on patient's age to complete this topic [facility]-Hepatitis A Vaccines Aged Out No longer eligible based on patient's age to complete this topic [facility]-IPV Vaccines Aged Out No longer e ligible based on patient's age to complete this topic [facility]-Rotavirus Vaccines Aged Out No lo nger eligible based on patient's age to complete this topic Procedures Procedure Name Priority Date/Time Associated Diagnosis Comments HEMOGLOBIN A1C Routine 01/12/2021 8:29 AM EDT Hypothyroidism (acquired) from Last 3 Months or Most Recently Relevant to Health Maintenance Results * (ABNORMAL) Hemoglobin A1c (01/12/2021 8:29 AM EDT) Hemoglobin A1c 6.4(H) <5.7 % 01/12/2021 2:07 PM EDT [facility] Blood Venous blood specimen / Unknown Venipuncture / Unknown 01/12/2021 8:29 AM EDT 01/12/2021 8:29 AM EDT Narrative [facility] - 01/12/2021 2:07 PM EDT HA1C Interpretive Data: Diagnosis of Diabetes: Diabetic > or = 6.5% Pre-diabetic 5.7 to 6.4% Non-diabetic < or = 5.6% Glycemic Targets for Type I and Type II Diabetics: Non- Adults <7.0% Adults <6.0% Children and Adolescents <7.5% Source: [place] [employer]. Standards of medical care in diabetes,2017. Diabetes Care.2017:40 (suppl 1):S1-S135. HbA1c assay performed by an ion-exchange chromatography method that is certified traceable to the DCCT. us Elina Ryder PROGRAMMING INTERN LAB BLOOD ORDERABLES Final Result [facility] [address] [place] [address] from Last 3 Months or Most Recently Relevant to Health Maintenance Insurance ANTH
--- OUTSIDE RECORDS SUMMARY | 2024-10-22 11:47 | XMS_ITS | Clinical Summary ---
Author Organization [facility] Address [address] [place] [address] Phone Care Team Providers Care Junior Network Engineer Name Role Phone Unavailable Primary Care Provider Unavailabl e Allergies No known active allergies Medications omeprazole (PRILOSEC) 20 mg Oral Capsule, Delayed Release(E.C.)Indic ations:Gastroesoph ageal reflux disease with esophagitis without hemorrhage Take 1 Capsule by mouth 2 times daily (before meals). 180 Capsule 3 02/28/20 23 Active metFORMIN (GLUCOPHAGE XR) 500 mg Oral ER 24 hr tabletIndications: Type 2 diabetes mellitus with hyperlipidemia (HCC) TAKE 1 TABLET BY MOUTH EVERY DAY IN THE MORNING WITH BREAKFAST 90 Tablet 1 04/15/20 23 Active albuterol (PROAIR HFA) 90 mcg/actuation Inhl HFA Aerosol InhalerIndications :Non-seasonal allergic rhinitis due to pollen Inhale 2 Puffs into the lungs every 4 hours as needed. for wheezing 8.5 g 1 04/15/20 23 Active telmisartan-hydroc hlorothiazide (MICARDIS HCT) 80-12.5 mg Oral TabletIndications: Hypertension associated with type 2 diabetes mellitus (HCC) Take 1 Tablet by mouth daily. 90 Tablet 1 04/15/20 23 Active metoprolol succinate (TOPROL-XL) 50 mg Oral Tablet Sustained Release 24 hrIndications:Hype rtension associated with type 2 diabetes mellitus (HCC) Take 1 Tablet by mouth daily. 90 Tablet 1 04/15/20 Active LEVOthyroxine (SYNTHROID) 88 mcg Oral TabletIndications: Hypothyroidism (acquired) Take 1 Tablet by mouth daily. 90 Tablet 1 04/15/20 Active tirzepatide (MOUNJARO) 5 mg/0.5 mL SubQ Pen InjectorIndication s:Type 2 diabetes mellitus with hyperlipidemia (HCC) Subcutaneous (Inject under the skin) 5 mg once a week. 2 mL 5 04/15/20 Active Additional Information Patient not taking.Reason: Pt electing to not take the medication, Reported on 07/29/2024 atorvastatin (LIPITOR) 10 mg Oral TabletIndications: Hyperlipidemia associated with type 2 diabetes mellitus (HCC) Take 1 Tablet by mouth daily. 90 Tablet 1 04/15/20 Active [id number] cco-FhEc-VAe-asb-C 140-9-5.2 gram Oral Powder in Packet, SequentialIndicati ons:Encounter for colonoscopy due to history of colonic polyp Take 1 Box by mouth Preprocedure for up to 2 doses. take as directed by doctor's office 3 Packet 03/27/20 24 Active levocetirizine (XYZAL) 5 mg Oral Tablet Take 5 mg by mouth daily. 02/11/20 24 Active rosuvastatin (CRESTOR) 20 mg Oral Tablet Take 20 mg by mouth nightly. 11/08/19 23 Active peg 3350-sod sulf,hkox-rak-yye 178.7-7.3-0.5 gram Oral Recon SolnIndications:En counter for colonoscopy due to history of colonic polyp Take 1 Kit by mouth See Admin Instructions. Take as directed by physician's office 1 Each 05/27/19 25 Active Active Problems Patient Care Coordination No te Formatting of this note migh t be different from the original. Care gap audit completed by Farhana Hilario RN on 04/09/2023. Problem Noted Date Diagnosed Date Plantar fasciitis of right foot 02/27/2023 Hyperlipidemia associated with type 2 diabetes m karen 12/01/2019 Assessment & Plan (04/15/2023 6:46 AM EST): Tolerating high intensity statin well Assessment & Plan (04/21/2022 6:44 AM EST): Tolerating high intensity statin well Assessment & Plan (10/21/2021 6:48 AM EDT): No current statin Check FLP Assessment & Plan (12/01/2019 4:04 PM EDT): Est 10 year risk at 11% (6% with high dose treatment) Type 2 diabetes mellitus with hyperlipidemia 08/2019 Assessment & Plan (04/15/2023 6:46 AM EST): FBW today A1C --> Continue good low carb diet, exercise regularly Discussed good foot care Needs to update eye exam, do IRIS today Assessment & Plan (04/21/2022 6:44 AM EST): FBW today Continue good low carb diet, exercise regularly Discussed good foot care Needs to update eye exam, IRIS today Assessment & Plan (10/21/2021 6:50 AM EDT): Continue metformin Check FBW Eye exam utd, check yearly Discussed good foot care No hypoglycemia Recheck 6 mos Assessment & Plan (12/01/2019 3:59 PM EDT): Well controlled A1C: 5.4 Elevated LFTs 06/03/2018 Assessment & Plan (06/03/2018 1:20 PM EST): Solitary, X1 Plan recheck with other BW in about 3 months. 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 Vitamin D insufficiency 10/05/2013 Assessment & Plan (04/15/2023 6:47 AM EST): Check level Assessment & Plan (04/21/2022 6:44 AM EST): Cont to monitor level Assessment & Plan (10/21/2021 6:50 AM EDT): Recheck level Assessment & Plan (06/03/2018 1:15 PM EST): No problems clinically. In low nml range Recommend Vit D OTC 5000 units daily Plan recheck in about 3 months PABLO on CPAP 10/05/2013 Assessment & Plan (04/15/2023 6:46 AM EST): Compliant by hx Assessment & Plan (04/21/2022 6:46 AM EST): Compliant by hx Hx of gout 03/30/2013 Assessment & Plan (04/15/2023 6:47 AM EST): No recent flares Check uric acid Allergic rhinitis 12/01/2011 Assessment & Plan (04/15/2023 6:45 AM EST): On prn OTC only Assessment & Plan (04/21/2022 6:44 AM EST): On prn OTC only Assessment & Plan (10/21/2021 6:48 AM EDT): Stable on current Assessment & Plan (06/03/2018 1:13 PM EST): No problems. Hypertension associated with type 2 diabetes rajat litus Assessment & Plan (04/15/2023 6:46 AM EST): Controlled on current On ARB Assessment & Plan (04/21/2022 6:43 AM EST): Controlled on current Assessment & Plan (10/21/2021 6:49 AM EDT): Stable on current On ARB Assessment & Plan (12/01/2019 4:00 PM EDT): Controlled. Assessment & Plan (06/03/2018 1:13 PM EST): Controlled. GERD (gastroesophageal reflux disease) Assessment & Plan (04/15/2023 6:45 AM EST): On prilosec now, symptoms better/controlled Assessment & Plan (02/27/2023 10:24 AM EDT): Cont lifestyle mod Add prilosec 20 BID (high dose) to start based on severity of symptoms Can reduce to daily if doing well If recalcitrant symptoms, consider UGI or referral to GI for EGD Assessment & Plan (04/21/2022 6:44 AM EST): On prn only Assessment & Plan (10/21/2021 6:48 AM EDT): Stable on prn Assessment & Plan (12/01/2019 4:00 PM EDT): Well controlled Assessment & Plan (06/03/2018 1:13 PM EST): Doing well. Resolved Problems Problem Noted Date Diagnosed Date Resolved Date Chest pain 09/14/2014 10/21/2021 Overview (09/14/2014): Workup negative with stress echo. Cardiology has cleared for discharge. Prediabetes 10/05/2013 10/21/2021 Assessment & Plan (06/03/2018 1:13 PM EST): Now in weight watchers Has lost 8 # in the past 2 weeks Recheck A1C in 3 months. PABLO on CPAP 10/05/2013 10/21/2021 Overview (09/14/2014): Will be seeing Dr Carlin yost. Assessment & Plan (12/01/2019 3:59 PM EDT): Doing well Assessment & Plan (06/03/2018 1:15 PM EST): Doing well on CPAP Obesity, Class I, BMI 30-34.9 10/05/2013 11/05/2013 Chest pain 08/12/2012 03/30/2013 Encounters Date Type Department Care Team Description 07/29/2024 12:54 PM EDT Anesthesia Event [facility] [address] [place] [address] Nicolas Soria CRNA Salyer, Corey L, PRE BILLING SPECIALIST 07/29/2024 11:15 AM EDT - 07/29/2024 11:59 PM EDT Hospital Encounter [facility] [address] [place] [address] Luan Pacheco MD Ansari, Camron R, CRNA Encounter for colonoscopy due to history of colonic polyp Discharge Disposition: Home or Self Care from Last 3 Months Immunizations Immunization Administration Dates Next Due Hepatitis B, Adult 07/16/2018,03/24/2018, 018 Influenza Intradermal 12/24/2012 Influenza Patient Reported 07/15/2020,03/06/2018 ,02/18/2018 Influenza Vaccine Quadrivalent 04/12/2015,2013 Influenza Vaccine Quadrivalent PF 04/12/2022,05/2020 Influenza Virus Vaccine Quad rivalant, Flublok 02/12/2023 Moderna SARS-CoV-2 Booster V accine 18+ Yrs (Light Blue Border) 10/21/2021 Moderna SARS-CoV-2 Vaccine 1 2+ Yrs (Light blue border) 05/26/2020,04/27/2020 Pneumococcal Conjugate Vaccine 20 Valent 023 Tdap 03/25/2007 Surgical History Surgery Date Site/Laterality Comments HARI AND BSO ~2002 CHOLECYSTECTOMY, LAPAROSCOPIC ~2002 BREAST REDUCTION SURGERY 05/06/1991 - 05/05/1992 TONSILLECTOMY ~2009 LAPAROSCOPIC APPENDECTOMY 04/16/2010 N/A LAPAROSCOPIC APPENDECTOMY - SCIP performed by Faustino MEDINA at [facility] [facility] OR UVULOPALATOPHARYGOPLASTY ~2009 HYSTERECTOMY 05/06/2002 - 05/05/2003 APPENDECTOMY COLONOSCOPY 02/12/2017 N/A Polyp was benign - recommend repeat colonoscopy in 10 years; COLONOSCOPY with biopsy; Surgeon: Rony Navarro MD PHD; [facility]; Service: Endoscopy OVARY REMOVAL 2002 Medical History Medical History Date Comments HTN (hypertension) GERD (gastroesophageal reflux disease) Gout PABLO (obstructive sleep apnea) S/ P UPPP BMI 31.0-31.9,adult Snoring Hyperlipidemia Family History Medical History Relation Name Comments Arthritis Brother 1 Diabetes Brother 1 Heart Disease Brother 1 at 55 High Blood Pressure Brother 1 High Cholesterol Brother 1 Diabetes Brother 2 Heart Disease Brother 2 defibrillator at 46 High Blood Pressure Brother 2 High Cholesterol Brother 2 Pacemaker Brother 2 Cancer Maternal Grandfather Tag unknown source Cancer Maternal Grandmother Addie unknown source Diabetes Mother High Blood Pressure Mother Thyroid Disease Mother Diabetes Other cousin Cancer Paternal Grandfather Rasheed lymphom a Heart Disease Paternal Grandfather Rasheed Defects Sister hole in heart Anesth Problems Neg Hx Relation Name Status Comments Brother 1 Alive Brother 2 Alive Father Alive Maternal Grandfather Tag Maternal Grandmother Addie Mother Alive Other cousin Alive Paternal Grandfather Rasheed Sister Social History Tobacco Use Types Packs/Day Years Used Date Smoking Tobacco: Every Day Cigarettes 0 15.1 Started: 09/14/2009 Smokeless Tobacco: Never Tobacco Cessation:Ready to Q uit: Not Asked; Counseling Given: Not Answered Comments:states 1 cigarette per day Alcohol Use Standard Drinks/Week Comments No 0 (1 standard drink = 0.6 oz pur e alcohol) 2 x a year Overall Financial Resource Strain (CARDIA) Answe r Date Recorded How hard is it for you to pa y for the very basics like food, housing, medical care, and heating? Not hard at all 10/15/2022 PHQ-2 Answer Date Recorded PHQ-2 Total Score 0 10/15/2022 [facility] - Occupational Stress Questionnaire Answer Date Recorded Do you feel stress - tense, restless, nervous, or anxious, or unable to sleep at night because your mind is troubled all the time - these days? Only a little 10/15/2022 Exercise Vital Sign Answer Date Recorde d On average, how many days pe r week do you engage in moderate to strenuous exercise (like a brisk walk)? 7 days 10/15/2022 On average, how many minutes do you engage in exercise at this level? 20 min 10/15/2022 Hunger Vital Sign Answer Date Recorded Within the past 12 months, y ou worried that your food would run out before you got the money to buy more. Never true 10/16/19 23 Within the past 12 months, t he food you bought just didn't last and you didn't have money to get more. Never true 10/15/2022 PRAPARE - Transportation Answer Date Re corded In the past 12 months, has l ack of transportation kept you from medical appointments or from getting medications? No 10/04 In the past 12 months, has l ack of transportation kept you from meetings, work, or from getting things needed for daily living? No 10/15/2022 Sexually Active Control Partners Comments Yes Male Comments No Sex and Gender Information Value Date Recorded Sex Assigned at Not on file Legal Sex Female 12:23 AM EDT Gender Identity Not on file Sexual Orientation Not on file Obstetrics History Para Term AB IAB SAB Ectopic Multiple Livin g Live Births 1 1 1 Date Outcome GA Total Labor Labor/2nd/3rd Weight Sex Type Anes PTL Aida A1 A5 Name Clin Para Last Filed Vital Signs Vital Sign Reading Time Taken Comments Blood Pressure 133/74 07/29/2024 1:34 PM EDT Pulse 68 07/29/2024 1:34 PM EDT Temperature 36.7 C (98.1 F) 07/29/2024 1:14 PM EDT Respiratory Rate 20 07/29/2024 1:34 PM EDT Oxygen Saturation 98% 07/29/2024 1:34 PM EDT Inhaled Oxygen Concentration - - Weight 81.2 kg (179 lb) 07/29/2024 11:25 AM EDT Height 160 cm (5' 3 ) 07/29/2024 11:25 AM EDT Body Mass Index 31.71 07/29/2024 11:25 AM EDT Plan of Treatment Health Maintenance Due Date Last Done Comments Cologuard 07/13/2008 FIT 07/13/2008 Sigmoidoscopy 07/13/2008 Virtual Colonography 07/13/2008 Zoster (1 of 2) 07/13/2013 DTaP/TDaP/Td (2 - Td or Tdap) 03/25/2017 03/25/2007 Diabetic Eye Exam 11/24/2021 11/25/2019 RSV or 60+ (1 - Risk 60-74 years 1-dose series) 2023 Hemoglobin A1c 10/12/2023 04/12/2023, 10/04, 04/21/2022, Additional history exists Kidney Health: eGFR 04/12/2024 04/12/2023, 10/15/2022, 04/21/2022, Additional history exists Lipids 04/12/2024 04/12/2023, 10/04, 04/21/2022, Additional history exists Annual Wellness Exam 04/15/2024 04/15/2023, 12/01/2019, 06/03/2018 Kidney Health: uACR 04/15/2024 04/15/2023 Breast Cancer Screening 02/03/2026 02/04/20 24, 02/06/2023, 02/05/2022, Additional history exists Colon Cancer Screening 07/29/2034 Colonoscopy 07/29/2034 07/29/2024, 02/12/2017 Hepatitis C Screening Completed 06/24/2017 Hepatitis B Vaccine Completed 07/16/2018, 03/24/2018, 02/18/2018 Pneumococcal Vaccine 50+ Completed 02/12/2023 COVID-19 Vaccine Completed 02/18/2024, , 04/12/2022, Additional history exists Influenza Vaccine Completed 02/18/2024, , 04/12/2022, Additional history exists Meningococcal B Vaccine Aged Out No l onger eligible based on patient's age to complete this topic Goals Goal Patient Goal Type Associated Problems Recent Progress Patient-Stated? Author Blood Pressure < 140/90 Blood Pressure 133/74(2024 1:34 PM EDT) No Lorri Damico MA Maintain a healthy diet, exercise regularly and maintain an ideal body weight General No Dilma Archer RMA BMI (Calculated) < 30 General 31.8(07/30/19 11:25 AM EDT) Tonya Mukherjee MD Stay Tobacco Free Lifestyle No Dilma Archer RMA HEMOGLOBIN A1C < 7.0 Result Component 7.3( 9:17 AM EST) No Tonya Zaragoza MD Procedures Procedure Name Priority Date/Time Associated Diagnosis Comments COLONOSCOPY Routine 07/29/2024 1:11 PM EDT Encounter for colonoscopy due to history of colonic polyp PATHOLOGY TISSUE REQUEST Routine 07/29/2024 1:09 PM EDT Encounter for colonoscopy due to history of colonic polyp INTRAOP AIRWAY PLACEMENT Routine 07/29/2024 12:56 PM EDT GLUCOSE METER POC Routine 07/29/2024 11: 36 AM EDT MM MAMMO DIGITAL JESSICA SCREEN BILAT Routine 02/04/2024 10:31 AM EDT Encounter for screening mammogram for malignant neoplasm of breast COMPREHENSIVE METABOLIC PANEL Routine 04/12/2023 9:17 AM EST Hypertension associated with type 2 diabetes mellitus (HCC) Vitamin D insufficiency Type 2 diabetes mellitus with hyperlipidemia (HCC) Hyperlipidemia associated with type 2 diabetes mellitus (HCC) LIPID SCREEN Routine 04/12/2023 9:17 AM EST Hypertension associated with type 2 diabetes mellitus (HCC) Vitamin D insufficiency Type 2 diabetes mellitus with hyperlipidemia (HCC) Hyperlipidemia associated with type 2 diabetes mellitus (HCC) HEMOGLOBIN A1C Routine 04/12/2023 9:17 AM EST Hypertension associated with type 2 diabetes mellitus (HCC) Vitamin D insufficiency Type 2 diabetes mellitus with hyperlipidemia (HCC) Hyperlipidemia associated with type 2 diabetes mellitus (HCC) HM DIABETES EYE EXAM Routine 11/25/2019 HCV ANTIBODY SCREEN W/ REFLEX Routine 06/24/2017 8:05 AM EST Need for hepatitis C screening test from Last 3 Months or Most Recently Relevant to Health Maintenance Results * COLONOSCOPY (07/29/2024 1:11 PM EDT) Anatomical Region Laterality Modality Endoscopy Narrative 07/29/2024 1:11 PM EDT Table formatting from the original result was not included. Findings One sessile and adenomatous-appearing polyp measuring 5-9 mm in the sigmoid colon; performed cold snare with complete piecemeal removal and retrieved specimen Internal medium hemorrhoids observed during retroflexion Recommendation Await pathology results - Repeat screening colonoscopy likely in 7 years Pre-Procedure Diagnosis / Indication Encounter for colonoscopy due to history of colonic polyp Post-Procedure Diagnosis Encounter for colonoscopy due to history of colonic polyp Staff Staff Role Luan Pacheco MD Performing Provider KODAK Dominguez CRNA, RN Mat Repairer Medications See Anesthesia Record. Preprocedure A history and physical has been performed, and patient medication allergies have been reviewed. The patient's tolerance of previous anesthesia has been reviewed. The risks and benefits of the procedure and the sedation options and risks were discussed with the patient. All questions were answered and informed consent obtained. ASA 2 - Patient with mild systemic disease Details of the Procedure The patient underwent monitored anesthesia care, which was administered by an anesthesia professional. The patient's blood pressure, heart rate, level of consciousness, oxygen, respirations, ECG and ETCO2 were monitored throughout the procedure. A digital rectal exam was performed. The scope was introduced through the anus and advanced to the cecum. Retroflexion was performed in the rectum. Bowel prep was adequate. The patient's estimated blood loss was minimal (<5 mL). The procedure was not difficult. The patient tolerated the procedure well. There were no apparent adverse events. Patient provided education and educated on specific discharge instructions. Patient educated on medications given during the procedure and new medications for discharge. Patient verbalizes understanding of discharge education. Patient stable and awaiting transport for discharge. Events Procedure Events Event Event Time ENDO SCOPE IN TIME 07/29/2024 12:59 PM ENDO CECUM REACHED 07/29/2024 1:00 PM ENDO SCOPE OUT TIME 07/29/2024 1:10 PM Specimens ID Type Source Tests Collected by Time 1 : Sigmoid colon polyp via cold snare Tissue Large Intestine, Sigmoid Colon PATHOLOGY TISSUE REQUEST Luan Pacheco MD 07/29/2024 1309 Anesthesia Event Time In Patient In - Proc. Room 12:53 PM Luan Pacheco MD ENDOSCOPY PROCEDURE ORDERABL ES Final Result * PATHOLOGY TISSUE REQUEST (07/29/2024 1:09 PM EDT) CASE REPORT Surgical Pathology Case: [id number] Authorizing Provider: Luan Pacheco MD Collected: 07/29/2024 1309 Order[facility] Received: 07/30/2024 0726 Pathologist: Basil Carlton MD Specimen: Large Intestine, Sigmoid Colon, Sigmoid colon polyp via cold snare 07/30/2024 3:44 PM EDT [facility] FINAL DIAGNOSIS Sigmoid colon, biopsy: - Unremarkable colonic mucosa with lymphoid aggregates. 07/30/2024 3:44 PM EDT [facility] at 1544 EDT GROSS DESCRIPTION A. Received in formalin, labeled with patient's name, MRN, and sigmoid colon polyp are 6 fragments of goel-white friable tissue, ranging from 0.2-0.6 cm. The tissue is submitted in toto in one cassette. BRAVO Mann PA (ASCP) 07/30/2024 3:44 PM EDT [facility] MICROSCOPIC DESCRIPTION The microscopic examination may have been rendered in whole, or in part, by analyzing high-resolution digital images (whole slide images) on the [employer] Digital Pathology platform validated at [facility]. Deeper levels are examined. 07/30/2024 3:44 PM EDT [facility] EMBEDDED IMAGES 07/30/2024 3:44 PM EDT [facility] Tissue SIGMOID COLON STRUCTURE / Unknown 07/29/2024 1:09 PM EDT 07/30/2024 7:26 AM EDT us Luan Pacheco MD PATHOLOGY ORDERABLES Final R esult Performing Organization Address City/[facility]/ZIP Co de Phone Number [facility] [address] [place] [address] * INTRAOP AIRWAY PLACEMENT (07/29/2024 12:56 PM EDT) Narrative [facility] - 07/29/2024 12:56 PM EDT Nicolas Soria BOOTMAKER 07/29/2024 12:56 PM Intraop Airway Placement: Date/Time: 07/29/2024 12:56 PM Nicolas Soria BOOTMAKER MD ANESTHESIA Edited Resu lt - Final Performing Organization Address [facility] Co de Phone Number [facility] [address] [place] [address] * (ABNORMAL) GLUCOSE METER POC (07/29/2024 11:36 AM EDT) Glucose Meter POC 117(H) 70 - 100 mg/dL 07/29/2024 11:38 AM EDT [facility] Sample Type Capillary 07/29/2024 11:38 AM EDT [facility] Patient Status Non-Critical Patient 07/29/2024 11:38 AM EDT [facility] Blood BLOOD SPECIMEN / Unknown 07/29/2024 11:36 AM EDT 07/29/2024 11:38 AM EDT Luan Pacheco MD POINT OF CARE TEST ORDERABLE S Final Result Performing Organization Address City/[facility]/ZIP Co de Phone Number [facility] [address] [place] [address] * MM MAMMO DIGITAL JESSICA SCREEN BILAT (02/04/2024 10:31 AM EDT) Anatomical Region Laterality Modality Breast Bilateral Mammography 02/04/2024 10:3 1 AM EDT Impressions 02/04/2024 2:32 PM EDT Negative ([id number]) RECOMMENDATION: Routine Screening Mammogram in 1 Year Bilateral No additional recommendation No additional laterality COMMENTS: Narrative 02/04/2024 2:32 PM EDT EXAM: MM MAMMO DIGITAL JESSICA SCREEN BILAT EXAM DATE: 02/04/2024 10:31 AM INDICATION: Z12.31-Encounter for screening mammogram for malignant neoplasm of [id number]-[id number] COMPARISON STUDIES: 02/06/2023, 02/05/2022, 02/06/2021, 03/21/2020 03/21/2019 TISSUE DENSITY: There are scattered areas of fibroglandular density. FINDINGS: No mammographic evidence of malignancy. Procedure Note Boone Lewis III, MD - 02/04/2024 EXAM: MM MAMMO DIGITAL JESSICA SCREEN BILAT EXAM DATE: 02/04/2024 10:31 AM INDICATION: Z12.31-Encounter for screening mammogram for malignantneoplasm of heivku-HRS-86-CM COMPARISON STUDIES: 02/06/2023, 02/05/2022, 02/06/2021, TISSUE DENSITY: There are scattered areas of fibroglandular density. FINDINGS: No mammographic evidence of malignancy. IMPRESSION: Negative ([id number]) RECOMMENDATION: Routine Screening Mammogram in 1 Year Bilateral No additional recommendation No additional laterality COMMENTS: us Not In [facility] Provider IMG MAMMOGRAPHY ORDERABLES Final Result * (ABNORMAL) HEMOGLOBIN A1C (04/12/2023 9:17 AM EST) Hgb A1C 7.3(H) 4.2 - 5.6 % 04/12/2023 3:19 PM EST [facility] Est. Avg Glucose 163 mg/dL 04/12/2023 3:19 PM EST [facility] Blood VENOUS BLOOD / Unknown Venipuncture / Unknown 04/12/2023 9:17 AM EST 04/12/2023 9:17 AM EST Narrative [facility] [employer] [facility] - 04/12/2023 3:19 PM EST REFERENCE RANGE: Normal: 4.0-5.6% Pre-diabetes: 5.7-6.4% Provisional diagnosis of diabetes: >6.4% Hgb F>10% and anything which shortens red cell survival, such as hemolytic anemia, or unstable hemoglobin variants such as HbSS, HbSC, or HbCC, will lower the HbA1c value associated with a given level of glycemic control. us Rolo Miller MD CHEMISTRY ORDERABLES Final Re sult [facility] [address] [facility] , [place] [address] * (ABNORMAL) LIPID SCREEN (04/12/2023 9:17 AM EST) Cholesterol 181 <200 mg/dL 04/12/2023 2:48 PM EST [facility] Comment: < 200 Desirable 200 - 239 Borderline High >= 240 High Triglyceride 123 <150 mg/dL 04/12/2023 2:48 PM EST [employer] Comment: < 150 Normal 150 - 199 Borderline High 200 - 499 High >= 500 Very High HDL 40 >=40 mg/dL 04/12/2023 2:48 PM EST [facility] Comment: > 60 Optimal 40 - 60 Acceptable < 40 Low LDL Calculated 119(H) <100 mg/dL 04/12/2023 2:48 PM EST [employer] Comment: < 100 Optimal 100 - 129 Near or above optimal 130 - 159 Borderline High 160 - 189 High >= 190 Very High Non-HDL-C Calculated 141(H) <=129 mg/dL 04/12/2023 2:48 PM EST [employer] Comment: <130 Desirable 130-159 Above Desirable 160-189 Borderline High 190-219 High >= 220 Very High Fasting Specimen? Yes None 023 2:48 PM EST [facility] Blood VENOUS BLOOD / Unknown Venipuncture / Unknown 04/12/2023 9:17 AM EST 04/12/2023 9:17 AM EST us Rolo Miller MD CHEMISTRY ORDERABLES Final Re sult [facility] [address] , [place] [address] [facility] [address] [place] [address] * (ABNORMAL) COMPREHENSIVE METABOLIC PANEL (04/12/2023 9:17 AM EST) Sodium 138 136 - 145 mmol/L 04/12/2023 2:48 PM EST [facility] Potassium 3.8 3.5 - 5.0 mmol/L 04/12/2023 2:48 PM EST [facility] Chloride 102 98 - 107 mmol/L 04/12/2023 2:48 PM EST [facility] Total CO2 26 22 - 29 mmol/L 04/12/2023 2:48 PM EST [facility] Anion Gap 10 7 - 16 mmol/L 04/12/2023 2:48 PM EST [facility] Calcium 9.4 8.6 - 10.4 mg/dL 04/12/2023 2:48 PM EST [facility] Glucose Lvl 156(H) 74 - 100 mg/dL 04/12/2023 2:48 PM EST [facility] BUN 14 6 - 20 mg/dL 04/12/2023 2:48 PM EST [facility] Creatinine 0.78 0.51 - 1.30 mg/dL 04/12/2023 2:48 PM EST [facility] Albumin 4.0 3.5 - 5.2 gm/dL 04/12/2023 2:48 PM EST [facility] Total Protein 7.0 6.4 - 8.3 gm/dL 04/12/2023 2:48 PM EST [facility] Bili Total 0.5 0.2 - 1.3 mg/dL 04/12/2023 2:48 PM EST [facility] ALT 75(H) <=41 U/L 04/12/2023 2:48 PM EST [facility] AST 63(H) <=40 U/L 04/12/2023 2:48 PM EST [facility] Alk Phos 119 36 - 123 U/L 04/12/2023 2:48 PM EST [facility] eGFR (CKD-EPIcr 2020) 87 >=60 mL/min/1.7 3 m2 04/12/2023 2:48 PM EST [facility] Comment:Estimated GFR was ca lculated using the CKD-EPIcr (2020) equation refit without race. The equation is recommended by the [employer] - [place] [employer] Neph[employer] Task Force. Blood VENOUS BLOOD / Unknown Venipuncture / Unknown 04/12/2023 9:17 AM EST 04/12/2023 9:17 AM EST Rolo Miller MD CHEMISTRY ORDERABLES Final Re sult Performing Organization Address City/[facility]/ZIP Co de Phone Number [facility] [address] [place] [address] [facility] [address] [place] [address] * DIABETES EYE EXAM (11/25/2019) Left Diabetic Retinopathy Not Present Present/Not Present SEP OFFICE Right Diabetic Retinopathy Not Present Present/Not Present SEP OFFICE 11/25/2019 Historical Provider HEALTH MAINTENANCE Final Res ult SEP OFFICE * HEPATITIS C ANTIBODY - SCREENING (06/24/2017 8:05 AM EST) Hep C Ab Negative Negative 06/24/2017 2:44 PM EST [facility] Blood VENOUS BLOOD / Unknown Venipuncture / Unknown 06/24/2017 8:05 AM EST 06/24/2017 8:05 AM EST Rolo Miller MD HEMATOLOGY ORDERABLES Final R esult [facility] [address] [place] [address] from Last 3 Months or Most Recently Relevant to Health Maintenance Insurance [id number] [place] [id number] COUNTS INCLUDE 234 BEDS AT THE [facility] FED[employer]AL PPO GENERIC WORKERS' COMP GENERIC WORKERS' COMP
== END 2024-10-22 11:48 | disposition home or self-care (01) ==
LOC: ER 11:45
PROVIDERS: Emergency Provider Student in an Organized Health Care Education/Training Program; PCP Nurse Practitioner Family
DX: S91.302A Unspecified open wound, left foot, initial encounter (principal); E11.9 Type 2 diabetes mellitus without complications; F17.210 Nicotine dependence, cigarettes, uncomplicated; W45.0XXA Nail entering through skin, initial encounter
CPT/HCPCS: 99283; J2004